=== PATIENT | female | born 1945 | race Two or more races ===

== ENCOUNTER 2018-07-20 10:49 | Emergency (ER) | payer OTHER ==
[~2018-07-20] VITALS: Ht 149.9 cm; Wt 56.7 kg
[2018-07-20] MEDS ORDERED: SYNTHROID75 MCG (10:58)
== END 2018-07-20 15:47 | disposition home or self-care (01) ==
LOC: ER
DX: J45.901 Unspecified asthma with (acute) exacerbation (principal)

== ENCOUNTER 2020-06-11 12:37 | Emergency (ER) | payer OTHER ==
[~2020-06-11] VITALS: Ht 139.7 cm; Wt 59.0 kg
[~2020-06-11 12:37] MED LIST: SYNTHROID75 MCG
[2020-06-11] MEDS ORDERED: COZAAR50 MG (12:50)
[2020-06-11] MEDS ORDERED: FLUCONAZOLE150 MG PO (13:33)
[2020-06-11] MEDS ORDERED: TERCONAZOLE45 GM TOP (13:33)
== END 2020-06-11 13:40 | disposition home or self-care (01) ==
LOC: ER 12:37
DX: B37.3 Candidiasis of vulva and vagina (principal)

== ENCOUNTER 2021-01-14 07:28 | Outpatient (CLI) | payer OTHER ==
[~2021-01-14 07:28] MED LIST changes: +COZAAR50 MG; +FLUCONAZOLE150 MG PO; +TERCONAZOLE45 GM TOP
== END 2021-01-14 07:39 | disposition home or self-care (01) ==
LOC: TOM 07:28
PROVIDERS: ATTEND Internal Medicine
DX: Z12.11 Encounter for screening for malignant neoplasm of colon (principal); Z80.0 Family history of malignant neoplasm of digestive organs

== ENCOUNTER 2024-12-15 11:09 | Emergency (ER) | payer OTHER ==
[~2024-12-15] VITALS: Ht 149.9 cm; Wt 61.2 kg
[2024-12-15] MEDS ORDERED: BENZONATATE 200 MG CAPSULE PO ONE (12:00)
[2024-12-15 13:11] LABS: BASO % 0.4 % (0.1-1.2); EOS # 0.14 (0.04-0.54); EOS % 2.0 % (0.7-7.0); LYMPH # 1.84 (1.18-3.74); LYMPH % 26.2 % (19.3-53.1); MEAN PLATELET VOLUME 10.40 fl (9.4-12.4); MONO # 0.51 (0.24-0.82); MONO % 7.3 % (4.7-12.5); NEUT # 4.46 (1.56-6.13); NEUT % 63.5 % (34.0-71.1); RED CELL DISTRIBUTION WIDTH 13.5 % (11.6-14.4)
[2024-12-15 13:35] LABS: ALT/SGPT 36.0 U/L (12-78); AST/SGOT 32.0 U/L (15-37); BILIRUBIN TOTAL 0.9 mg/dL (0.3-1.2); BUN CREA RATIO 30.0 (7.0-25.0); CREATININE SERUM 1.28 mg/dL (0.55-1.02); GFR 40.23; GLOBULINA 4.4 G/DL (2.4-3.5); GLUCOSE FASTING 103.0 mg/dL (65-100); OSMOLALITY SERUM 292.0 MOSM/KG (275-295)
[2024-12-15 13:53] LABS: URINE APPEARANCE Clear; URINE BILIRRUBIN Negative (NEGATIVE); URINE BLOOD Negative; URINE COLOR Yellow; URINE GLUCOSE Negative (NEGATIVE); URINE KETONE Negative (NEGATIVE); URINE LEUKOCYTE Small; URINE NITRATE Negative; URINE PROTEIN Negative (NEGATIVE); URINE UROBILINOGEN 0.2 E.U./dl
[2024-12-15 13:57] LABS: URINE BACTERIA 246.0 uL (0.0-1933); URINE EPITHELIAL CELLS 13.2 uL (0.0-38.8); URINE RBC 5.2 uL (0.0-20.8); URINE WBC 37.5 uL (0.0-23.2)
[2024-12-15 14:02] LABS: URINE CAST 0.58 uL (0.0-1.40)
[2024-12-15 14:20] LABS: COVID-19 AG NEGATIVE (NEGATIVE)
[2024-12-15] MEDS ORDERED: BENZONATATE200 M1 PO (14:30)
[2024-12-15] MEDS ORDERED: PEPCID AC20 MG PO (14:30)
[2024-12-15] MEDS ORDERED: BACTRIM DS TAB1 EACH PO (14:30)
== END 2024-12-15 14:37 | disposition home or self-care (01) ==
LOC: ER 11:09
PROVIDERS: General Practice
DX: R05.8 Other specified cough (principal); Z88.6 Allergy status to analgesic agent; R42 Dizziness and giddiness; Z20.822 Contact with and (suspected) exposure to COVID-19; R26.89 Other abnormalities of gait and mobility